=== PATIENT | female | born 1965 | race Caucasian/White ===

== ENCOUNTER 2022-01-24 22:41 | Emergency (ER) | payer OTHER ==
[2022-01-24 23:44] LABS: HEMOGLOBIN 14.5 gm/dl (12.3-15.3); RED BLOOD COUNT 4.91 M/UL (4.00-5.10)
[2022-01-25 00:08] LABS: BUN/CREATININE RATIO 24 (0-10)
[2022-01-25] MEDS ORDERED: DILANTIN 100 M100 MG PO (00:48)
== END 2022-01-25 01:28 | disposition home or self-care (01) ==
LOC: ER1 22:41
PROVIDERS: Emergency Medicine
DX: G40.909 Epilepsy, unspecified, not intractable, without status epilepticus (principal); R10.11 Right upper quadrant pain
CPT/HCPCS: 80053; 80185; 81001; 83690; 84703; 85025; 96374; 99284; J2405; Q2009